=== PATIENT | male | born 1995 | race Two or more races ===

== ENCOUNTER 2023-09-21 09:07 | Emergency (ER) | payer MEDICAID ==
[~2023-09-21] VITALS: Ht 182.9 cm; Wt 88.9 kg
[2023-09-21 09:16] VITALS: TEMP 98.3
[2023-09-21] MEDS: ondansetron/PF 4mg/2ml inj IV ONE ×2 (10:35→10:48)
[2023-09-21] MEDS: normal saline 1000ML IV soln IVB ONE ×2 (10:35→10:48)
[2023-09-21 12:07] VITALS: BP 135/82; PULSE 57; RESP 15; O2SAT 98
[2023-09-21] MEDS: potassium Cl 20 mEq SR tablet PO STA (12:15)
[2023-09-21] MEDS: loperamide 2mg capsule PO ONE (12:15)
== END 2023-09-21 12:57 | disposition home or self-care (01) ==
LOC: ER 09:09
DX: E86.0 Dehydration (principal); R51.9 Headache, unspecified; F12.90 Cannabis use, unspecified, uncomplicated
CPT/HCPCS: 96361; 96374; 99283; J2405; J7030

== ENCOUNTER 2023-09-22 21:47 | Emergency (ER) | payer MEDICAID ==
[~2023-09-22] VITALS: Ht 182.9 cm; Wt 69.2 kg
[2023-09-22] MEDS ORDERED: dexamethasone sod phosphate 10mg/ml inj IM STA (22:28)
[2023-09-22] MEDS ORDERED: ketorolac trometh. 30mg/ml inj. IM ONE (22:30)
[2023-09-23 00:05] VITALS: PULSE 103
[2023-09-23] MEDS ORDERED: CYCL-1 PO (00:05)
[2023-09-23 00:19] VITALS: BP 148/65; TEMP 99.1; O2SAT 97
[2023-09-23] MEDS: ketorolac trometh. 30mg/ml inj. IV ONE (00:28)
[2023-09-23] MEDS: dexamethasone sod phosphate 10mg/ml inj IV STA (00:29)
[2023-09-23 00:35] VITALS: RESP 13
== END 2023-09-23 00:40 | disposition home or self-care (01) ==
LOC: ER 21:48
DX: M54.2 Cervicalgia (principal); M79.18 Myalgia, other site; F12.90 Cannabis use, unspecified, uncomplicated; Z20.822 Contact with and (suspected) exposure to COVID-19
CPT/HCPCS: 36415; 71045; 72040; 87811; 96374; 96375; 99284; J1100; J1885